=== PATIENT | female | born 1990 | race Caucasian/White ===

== ENCOUNTER 2018-11-30 15:24 | Emergency (ER) | payer BC, OTHER ==
[2018-11-30] MEDS ORDERED: NORCO 5/325 MG PO ONE (15:54)
[2018-11-30] MEDS ORDERED: NORCO 5/325 MG ONE (16:00)
[2018-11-30 16:37] VITALS: BP 122/60; PULSE 62
[2018-11-30 16:45] VITALS: O2SAT 98
--- NOTE | 2018-11-30 16:45 | ERPHSYRPT ---
- History of Present Illness Time Seen by Provider: 11/30/18 15:50 Source: patient Exam Limitations: clinical condition Patient Subjective Stated Complaint: Left ankle injury Triage Nursing Assessment: Patient brought back to ED via w/c and transferred to bed per self. Patient A+O X 3. Patient states she was coming out of her house and slipped on a run and landed on left ankle. Left ankle noted to be swollen and bruised. Patient complain of constant aching 2/10 when at rest and 5 /10 when moving. Pulse present. Physician History: PATIENT SLIPPED ONTO A RUG AND TWISTED HER LEFT ANKLE, COMPLAINS OF SEVERE PAIN AND SWELLING OVER OUTER ASPECT OF ANKLE. DENIES DEFORMITY OR BRUISING. Method of Injury: direct blow Occurred: just prior to arrival Quality: throbbing Severity of Pain-Max: moderate Severity of Pain-Current: moderate Lower Extremities Pain: ankle: left Modifying Factors: Improves With: movement Associated Symptoms: unable to bear weight Allergies/Adverse Reactions: No Known Drug Allergies Allergy (Unverified 11/30/18 15:38) Home Medications: Norgestimate-Ethinyl Estradiol [Tri-Sprintec] 1 tab PO DAILY 11/30/18 [History] Hx Influenza Vaccination/Date Given: Yes Hx Pneumococcal Vaccination/Date Given: No Immunizations Up to Date: Yes - Review of Systems Constitutional: No Symptoms Musculoskeletal: Injury, Joint Pain, Joint Swelling Endocrine: No Symptoms Immunological/Allergic: No Symptoms - Past Medical History Pertinent Past Medical History: No Neurological History: No Pertinent History ENT History: No Pertinent History Cardiac History: No Pertinent History Respiratory History: No Pertinent History Endocrine Medical History: No Pertinent History Musculoskeletal History: No Pertinent History GI Medical History: No Pertinent History History: No Pertinent History Psycho-Social History: No Pertinent History Female Reproductive Disorders: No Pertinent History - Past Surgical History Past Surgical History: Yes Neuro Surgical History: No Pertinent History Cardiac: No Pertinent History Respiratory: No Pertinent History Gastrointestinal: No Pertinent History Genitourinary: No Pertinent History Musculoskeletal: No Pertinent History Female Surgical History: No Pertinent History - Social History Smoking Status: Never smoker Exposure to second hand smoke: No Drug Use: none Patient Lives Alone: No - Female History Hx Last Menstrual Period: 3 weeks ago Hx Now: No - Nursing Vital Signs Nursing Vital Signs: Initial Vital Signs Temperature 98.0 F 11/30/18 15:40 Pulse Rate 62 11/30/18 15:40 Respiratory Rate 18 11/30/18 15:40 Blood Pressure 122/60 11/30/18 15:40 O2 Sat by Pulse Oximetry 96 11/30/18 15:40 Pain Scale Pain Intensity 5 - Physical Exam General Appearance: no apparent distress Ankle Exam: left ankle: limited range of motion, pain, soft tissue tenderness, swelling (MARKED SOFT TISSUE SWELLING LATERAL MALLEOLUS, NO JOINT LAXITY, CREPITUS OR ECCHYMOSIS, LEFT PEDIS PULSE 2+) DTR - Lower Extremities Exam: knee (R): 2+, knee (L): 2+, ankle (R): 2+, ankle ( L): 2+ SpO2 Interpretation: normal SpO2: 98 - Radiology Exams Left Ankle X-ray Interpretation: Interpreted by me (MARKED SOFT TISSUE SWELLING LATERAL MALLEOLUS, NO FRACTURE OR DISLOCATION) Ordered Tests: Active Orders 24 hr Category Date Time Status Crutches STAT Care 11/30/18 15:51 Active Splint STAT Care 11/30/18 15:51 Active ANKLE (3 VIEWS) Stat Exams 11/30/18 16:14 Taken Medication Summary Discontinued Medications Generic Name Dose Route Start Last Admin Trade Name Freq PRN Reason Stop Dose Admin Hydrocodone Bitart/Acetaminophen 1 tab 11/30/18 15:54 11/30/18 16:01 Hewitt 5/325 Mg PO 11/30/18 15:55 1 tab STAT ONE Administration Hydrocodone Bitart/Acetaminophen Confirm 11/30/18 16:00 [place] 5/325 Mg Administered 11/30/18 16:01 Dose 1 tab .ROUTE .STK-MED ONE - Progress Progress: pain not gone completely Progress Note: 11/30/18 16:40 NORCO 5/325 ORALLY, CRUTCHES, VELCRO ANKLE SPLINT Counseled pt/family regarding: diagnosis, need for follow-up, rad results - Departure Departure Disposition: Home Clinical Impression: LEFT ANKLE STRAIN Condition: Stable Critical Care Time: No Referrals: JANEL VALERIO MD [Primary Care Provider] - Additional Instructions: AMBULATE USING CRUTCHES NONWEIGHT BEARING LEFT FOOT FOR 5-7 DAYS, ELEVATE FOOT AND APPLY ICE OVER ANKLE SWELLING EVERY 4 HOURS,30 MINUTES FOR 48 HOURS. MOTRIN 600MG EVERY 6 HOURS FOR MILD TO MODERATE PAIN. NORCO 5/325 EVERY 6 HOURS FOR SEVERE PAIN. CONSULT YOUR PRIMARY CARE PROVIDER FOR FOLLOWUP IN 1 WEEK. Prescriptions: Hydrocodone/APAP 5-325 Tab^^^ [[place]itt 5-325 Tablet^^^] 1 tab PO Q6HPRN PRN #8 tablet MDD 4 PRN Reason: Pain Ibuprofen 600 mg PO Q6H PRN PRN #20 tablet PRN Reason: Pain
--- NOTE | 2018-11-30 22:02 | XRAY ---
Indication: Pain and swelling following injury. Comparison: None 3 views of the left ankle demonstrates anterior lateral soft tissue swelling. No other bony, articular, or soft tissue abnormalities.
== END 2018-11-30 17:43 | disposition home or self-care (01) ==
LOC: ED 15:24
DX: S96.912A Strain of unspecified muscle and tendon at ankle and foot level, left foot, initial encounter (principal); W01.198A Fall on same level from slipping, tripping and stumbling with subsequent striking against other object, initial encounter; X50.1XXA Overexertion from prolonged static or awkward postures, initial encounter; M25.572 Pain in left ankle and joints of left foot
CPT/HCPCS: 73610; 99284; A9270-GY

== ENCOUNTER 2024-09-14 20:01 | Emergency (ER) | payer BC, OTHER ==
[2024-09-14 20:30] VITALS: TEMP 97.7
--- NOTE | 2024-09-14 20:31 | ERPHSYRPT ---
- History of Present Illness Time Seen by Provider: 09/14/24 20:15 Source: patient, family, EMS Exam Limitations: no limitations Patient Subjective Stated Complaint: C/O syncope episode at [facility] just prior to coming into the ER. Patient states she remembers suddently not feeling well and wanting to go home then woke up on the floor. states that patient did not try to catch herself from falling. Patient fell from a seated position. Triage Nursing Assessment: Patient arrived by EMS. She is alert and oriented but slow to answer at times, states it's because she can't remember some things about the incident. Patient staring off during triage at times. Patient has to have help by staff to sit up and remove shirt then put on gown; too weak to hold herself upright long enough to complete the task on her own. Hematoma forming to left side of forehead. Front tooth slightly chipped. Physician History: This is a 34-year-old white female patient brought to the emergency department by the paramedics with the complaint/medical issue of syncopal episode while at the [facility] prior to arrival. Patient was in a sitting position and then suddenly just fell over onto the ground hitting her head on the left side. She presents with a left forehead hematoma and the tip of her left front tooth. She does recall not feeling well just before this occurred and wanted to go home. The next thing she recalls she was on the floor. On arrival to the [facility] by the paramedics, the patient was breathing on her own and slowly starting to come to. They did place an intravenous line and was infusing normal saline solution. This is never happened to her before. She is awake alert and oriented but does not feel quite herself. She has been feeling well all week. She currently denies nausea vomiting or diarrhea. There is been no new medications. She only had 1 drink and it was approximately 2 to 3 hours prior to the patient arrival to the emergency department. She felt very weak on arrival to the emergency department. She states she has been eating and drinking well all week long. Timing/Duration: today Severity: moderate Character of Deficits: none Deficits: no difficulties Baseline/Normal Cognition: alert oriented x 3 Current Cognition: alert oriented x 3 Baseline Gait: walks w/o assistance Associated Symptoms: loss of consciousness, weakness, No confusion, No nausea, No vomiting, No vision changes, No chest pain Allergies/Adverse Reactions: No Known Drug Allergies Allergy (Verified 09/14/24 20:11) Home Medications: Norgestimate-Ethinyl Estradiol [[place]na 0.25-0.035 mg Tablet] 1 tab PO DAILY 09/14/24 [History] Hx Influenza Vaccination/Date Given: Yes Hx Pneumococcal Vaccination/Date Given: No Immunizations Up to Date: Yes Travel Risk - International Travel Have you traveled outside of the country in past 3 weeks: No - Emerging Infectious Disease Are you exhibiting symptoms associated with any current EIDs: No - Review of Systems Constitutional: Weakness Eyes: No Symptoms Ears, Nose, & Throat: No Symptoms Respiratory: No Symptoms Cardiac: No Symptoms Abdominal/Gastrointestinal: No Symptoms Genitourinary Symptoms: No Symptoms Musculoskeletal: No Symptoms Skin: No Symptoms Neurological: No Symptoms Psychological: No Symptoms Endocrine: No Symptoms Hematologic/Lymphatic: No Symptoms Immunological/Allergic: No Symptoms All Other Systems: Reviewed and Negative - Past Medical History Pertinent Past Medical History: No Neurological History: No Pertinent History ENT History: No Pertinent History Cardiac History: No Pertinent History Respiratory History: No Pertinent History Endocrine Medical History: No Pertinent History Musculoskeletal History: No Pertinent History GI Medical History: No Pertinent History History: No Pertinent History Psycho-Social History: No Pertinent History Female Reproductive Disorders: No Pertinent History - Past Surgical History Past Surgical History: No Neuro Surgical History: No Pertinent History Cardiac: No Pertinent History Respiratory: No Pertinent History Gastrointestinal: No Pertinent History Genitourinary: No Pertinent History Musculoskeletal: No Pertinent History Female Surgical History: No Pertinent History - Female History Hx Last Menstrual Period: NOW Hx Now: No - Social History Smoking Status: Never smoker Exposure to second hand smoke: No Drug Use: none - Social Determinants of Health Will the patient participate in the screening: Yes Do you worry about a steady place to live?: No Do you have any problems with any of the following?: No known problems In the past 12 months,have you had to go without utilities?: No Transportation Issues: No Has anyone in your support network made you feel unsafe?: No Have you or anyone in your house had to go w/o enough food: No - Nursing Vital Signs Nursing Vital Signs: Initial Vital Signs Temperature 97.7 F 09/14/24 20:01 Pulse Rate 80 09/14/24 20:01 Respiratory Rate 18 09/14/24 20:01 Blood Pressure 105/58 09/14/24 20:01 O2 Sat by Pulse Oximetry 98 09/14/24 20:01 Pain Scale Pain Intensity 6 - [place] Coma Scale Best Eye Response ([place]): (4) open spontaneously Best Verbal Response ([place]): (5) oriented Best Motor Response ([place]): (6) obeys commands Daryl Total: 15 - Physical Exam General Appearance: no apparent distress, alert, anxiety Eye Exam: bilateral eye: normal inspection, PERRL, EOMI Ears, Nose, Throat Exam: normal ENT inspection, TMs normal, moist mucous membranes Neck Exam: normal inspection, non-tender, supple, full range of motion Respiratory: normal breath sounds, lungs clear, airway intact, No chest tenderness, No respiratory distress Cardiovascular: regular rate/rhythm, normal heart sounds, normal peripheral pulses Gastrointestinal: soft, normal bowel sounds, No tenderness Pelvic Exam: not done Rectal Exam: not done Back Exam: normal inspection, normal range of motion, No CVA tenderness, No vertebral tenderness Extremity Exam: normal inspection, normal range of motion, pelvis stable Mental Status: alert, oriented x 3, other (She feels off as though she is in a fog) unix analyst Exam: normal hearing, normal speech, PERRL, tongue midline Skin Exam: normal color, warm, dry, other (Left forehead hematoma.) SpO2 Interpretation: normal SpO2: 96 O2 Delivery: Room Air Ordered Tests: Active Orders 24 hr Category Date Time Status String Winding Machine Operator STAT Care 09/14/24 20:20 Active EKG-ER Only STAT Care 09/14/24 20:18 Active IV Insertion STAT Care 09/14/24 20:18 Active POCT Glucose Check STAT Care 09/14/24 20:18 Active Pulse Oximetry (ED) STAT Care 09/14/24 20:18 Active CERVICAL SPINE WO CONTRAST [CT] Stat Exams 09/14/24 20:19 Completed HEAD WITHOUT CONTRAST [CT] Stat Exams 09/14/24 20:19 Completed CBC W DIFF Stat Lab 09/14/24 20:45 Completed CMP Stat Lab 09/14/24 20:45 Completed CULTURE,URINE Stat Lab 09/14/24 21:43 Received ETHYL ALCOHOL Stat Lab 09/14/24 20:45 Completed HCG QUALITATIVE, SERUM Stat Lab 09/14/24 20:45 Completed MAGNESIUM Stat Lab 09/14/24 20:45 Completed TROPONIN Q4H Lab 09/14/24 20:45 Completed TROPONIN Q4H Lab 09/15/24 00:30 Ordered TROPONIN Q4H Lab 09/15/24 04:30 Ordered TSH [TSH, 3RD Generation] Stat Lab 09/14/24 20:45 Completed UA W/RFX UR CULTURE Stat Lab 09/14/24 21:43 Completed Urine Triage Profile Stat Lab 09/14/24 21:43 Completed Medication Summary Generic Name Dose Route Start Last Admin Trade Name Freq PRN Reason Stop Dose Admin Sodium Chloride 1,000 mls @ 100 mls/hr 09/14/24 20:30 09/14/24 20:42 Sodium Chloride 0.9% 1000 Ml IV 10/14/24 20:29 100 mls/hr .Q10H YANCI Administration Lab/Rad Data: Laboratory Result Diagrams 09/14/24 20:45 09/14/24 20:45 Laboratory Results 09/14/24 09/14/24 09/14/24 Range/Units 21:43 21:43 20:45 WBC (3.98-10.04) x10^3/uL RBC (3.93-5.22) x10^6/uL Hgb (11.2-15.7) g/dL Hct (34.1-44.9) % MCV (79.4-94.8) fL MCH (25.6-32.2) pg MCHC (32.2-35.5) g/dL RDW (11.7-14.4) % Plt Count (182-369) x10^3/uL MPV (9.4-12.3) fL Gran % (34.0-71.1) % Immature Gran % (Auto) (0.001-0.429) % Nucleat RBC Rel Count (0.00-0.2) % Eos # (Auto) (0.04-0.36) x10^3/uL Immature Gran # (Auto) (0.001-0.031) x10^3u/L Absolute Lymphs (auto) (1.18-3.74) x10^3/uL Absolute Monos (auto) (0.24-0.86) x10^3/uL Absolute Nucleated RBC (0.00-0.012) x10^3u/L Lymphocytes % (19.3-51.7) % Monocytes % (4.7-12.5) % Eosinophils % (0.7-5.8) % Basophils % (0.1-1.2) % Absolute Granulocytes (1.56-6.13) x10^3/uL Basophils # (0.01-0.08) x10^3/uL Sodium (135-145) mmol/L Potassium (3.5-5.1) mmol/L Chloride (98-107) mmol/L Carbon Dioxide (22-30) mmol/L Anion Gap (5-15) MEQ/L BUN (7-17) mg/dL Creatinine (0.52-1.04) mg/dL Estimated GFR ML/MIN Glucose (74-106) mg/dL Calcium (8.4-10.2) mg/dL Magnesium (1.6-2.3) mg/dL Total Bilirubin (0.2-1.3) mg/dL AST (14-36) U/L ALT (0-35) U/L Alkaline Phosphatase (38-126) U/L Troponin I (0.000-0.033) ng/mL Serum Total Protein (6.3-8.2) g/dL Albumin (3.5-5.0) g/dL Free T4 (0.78-2.19) ng/dL TSH 3rd Generation (0.470-4.680) mIU/L Serum HCG, Qual NEGATIVE (NEGATIVE) Urine Color Yellow (Yellow) Urine Appearance Cloudy A (Clear) Urine pH 7.5 (4.6-8.0) Ur Specific [place] 1.015 (1.005-1.030) Urine Protein 30 (Negative) Urine Glucose (UA) Negative (Negative) mg/dL Urine Ketones Trace A (Negative) Urine Blood Negative (Negative) Urine Nitrite Negative (Negative) Urine Bilirubin Negative (Negative) Urine Urobilinogen 0.2 (0.2) mg/dL Ur Leukocyte Esterase Negative (Negative) U Hyaline Cast (Auto) 3-5 A (0-2) /LPF Urine Microscopic RBC 3-5 (0-5) /HPF Urine Microscopic WBC 11-20 A (0-5) /HPF Ur Epithelial Cells None Seen (None Seen) /HPF Urine Bacteria Rare A (None Seen) /HPF Urine Culture Reflexed YES (NO) Urine Opiates Level NEGATIVE (NEGATIVE) Ur Methadone NEGATIVE (NEGATIVE) Urine Barbiturates NEGATIVE (NEGATIVE) Ur Phencyclidine (PCP) NEGATIVE (NEGATIVE) Urine Amphetamine NEGATIVE (NEGATIVE) U Benzodiazepine Level NEGATIVE (NEGATIVE) Urine Cocaine NEGATIVE (NEGATIVE) Urine Marijuana (THC) NEGATIVE (NEGATIVE) Ethyl Alcohol (0-10) mg/dL 09/14/24 09/14/24 09/14/24 Range/Units 20:45 20:45 20:45 WBC (3.98-10.04) x10^3/uL RBC (3.93-5.22) x10^6/uL Hgb (11.2-15.7) g/dL Hct (34.1-44.9) % MCV (79.4-94.8) fL MCH (25.6-32.2) pg MCHC (32.2-35.5) g/dL RDW (11.7-14.4) % Plt Count (182-369) x10^3/uL MPV (9.4-12.3) fL Gran % (34.0-71.1) % Immature Gran % (Auto) (0.001-0.429) % Nucleat RBC Rel Count (0.00-0.2) % Eos # (Auto) (0.04-0.36) x10^3/uL Immature Gran # (Auto) (0.001-0.031) x10^3u/L Absolute Lymphs (auto) (1.18-3.74) x10^3/uL Absolute Monos (auto) (0.24-0.86) x10^3/uL Absolute Nucleated RBC (0.00-0.012) x10^3u/L Lymphocytes % (19.3-51.7) % Monocytes % (4.7-12.5) % Eosinophils % (0.7-5.8) % Basophils % (0.1-1.2) % Absolute Granulocytes (1.56-6.13) x10^3/uL Basophils # (0.01-0.08) x10^3/uL Sodium (135-145) mmol/L Potassium (3.5-5.1) mmol/L Chloride (98-107) mmol/L Carbon Dioxide (22-30) mmol/L Anion Gap (5-15) MEQ/L BUN (7-17) mg/dL Creatinine (0.52-1.04) mg/dL Estimated GFR ML/MIN Glucose (74-106) mg/dL Calcium (8.4-10.2) mg/dL Magnesium (1.6-2.3) mg/dL Total Bilirubin (0.2-1.3) mg/dL AST (14-36) U/L ALT (0-35) U/L Alkaline Phosphatase (38-126) U/L Troponin I < 0.012 (0.000-0.033) ng/mL Serum Total Protein (6.3-8.2) g/dL Albumin (3.5-5.0) g/dL Free T4 1.06 (0.78-2.19) ng/dL TSH 3rd Generation 0.707 (0.470-4.680) mIU/L Serum HCG, Qual (NEGATIVE) Urine Color (Yellow) Urine Appearance (Clear) Urine pH (4.6-8.0) Ur Specific [place] (1.005-1.030) Urine Protein (Negative) Urine Glucose (UA) (Negative) mg/dL Urine Ketones (Negative) Urine Blood (Negative) Urine Nitrite (Negative) Urine Bilirubin (Negative) Urine Urobilinogen (0.2) mg/dL Ur Leukocyte Esterase (Negative) U Hyaline Cast (Auto) (0-2) /LPF Urine Microscopic RBC (0-5) /HPF Urine Microscopic WBC (0-5) /HPF Ur Epithelial Cells (None Seen) /HPF Urine Bacteria (None Seen) /HPF Urine Culture Reflexed (NO) Urine Opiates Level (NEGATIVE) Ur Methadone (NEGATIVE) Urine Barbiturates (NEGATIVE) Ur Phencyclidine (PCP) (NEGATIVE) Urine Amphetamine (NEGATIVE) U Benzodiazepine Level (NEGATIVE) Urine Cocaine (NEGATIVE) Urine Marijuana (THC) (NEGATIVE) Ethyl Alcohol (0-10) mg/dL 09/14/24 09/14/24 Range/Units 20:45 20:45 WBC 13.0 H (3.98-10.04) x10^3/uL RBC 4.02 (3.93-5.22) x10^6/uL Hgb 12.2 (11.2-15.7) g/dL Hct 37.1 (34.1-44.9) % MCV 92.3 (79.4-94.8) fL MCH 30.3 (25.6-32.2) pg MCHC 32.9 (32.2-35.5) g/dL RDW 13.2 (11.7-14.4) % Plt Count 291 (182-369) x10^3/uL MPV 10.0 (9.4-12.3) fL Gran % 75.7 H (34.0-71.1) % Immature Gran % (Auto) 0.2 (0.001-0.429) % Nucleat RBC Rel Count 0.0 (0.00-0.2) % Eos # (Auto) 0.29 (0.04-0.36) x10^3/uL Immature Gran # (Auto) 0.03 (0.001-0.031) x10^3u/L Absolute Lymphs (auto) 1.77 (1.18-3.74) x10^3/uL Absolute Monos (auto) 1.00 H (0.24-0.86) x10^3/uL Absolute Nucleated RBC 0.00 (0.00-0.012) x10^3u/L Lymphocytes % 13.7 L (19.3-51.7) % Monocytes % 7.7 (4.7-12.5) % Eosinophils % 2.2 (0.7-5.8) % Basophils % 0.5 (0.1-1.2) % Absolute Granulocytes 9.81 H (1.56-6.13) x10^3/uL Basophils # 0.06 (0.01-0.08) x10^3/uL Sodium 141 (135-145) mmol/L Potassium 3.7 (3.5-5.1) mmol/L Chloride 106 (98-107) mmol/L Carbon Dioxide 26 (22-30) mmol/L Anion Gap 13.3 (5-15) MEQ/L BUN 10 (7-17) mg/dL Creatinine 0.70 (0.52-1.04) mg/dL Estimated GFR 114.9 ML/MIN Glucose 98 (74-106) mg/dL Calcium 9.1 (8.4-10.2) mg/dL Magnesium 2.0 (1.6-2.3) mg/dL Total Bilirubin 0.40 (0.2-1.3) mg/dL AST 26 (14-36) U/L ALT 18 (0-35) U/L Alkaline Phosphatase 52 (38-126) U/L Troponin I (0.000-0.033) ng/mL Serum Total Protein 6.3 (6.3-8.2) g/dL Albumin 3.7 (3.5-5.0) g/dL Free T4 (0.78-2.19) ng/dL TSH 3rd Generation (0.470-4.680) mIU/L Serum HCG, Qual (NEGATIVE) Urine Color (Yellow) Urine Appearance (Clear) Urine pH (4.6-8.0) Ur Specific [place] (1.005-1.030) Urine Protein (Negative) Urine Glucose (UA) (Negative) mg/dL Urine Ketones (Negative) Urine Blood (Negative) Urine Nitrite (Negative) Urine Bilirubin (Negative) Urine Urobilinogen (0.2) mg/dL Ur Leukocyte Esterase (Negative) U Hyaline Cast (Auto) (0-2) /LPF Urine Microscopic RBC (0-5) /HPF Urine Microscopic WBC (0-5) /HPF Ur Epithelial Cells (None Seen) /HPF Urine Bacteria (None Seen) /HPF Urine Culture Reflexed (NO) Urine Opiates Level (NEGATIVE) Ur Methadone (NEGATIVE) Urine Barbiturates (NEGATIVE) Ur Phencyclidine (PCP) (NEGATIVE) Urine Amphetamine (NEGATIVE) U Benzodiazepine Level (NEGATIVE) Urine Cocaine (NEGATIVE) Urine Marijuana (THC) (NEGATIVE) Ethyl Alcohol 26 H (0-10) mg/dL - Progress Progress: improved, re-examined Progress Note: 09/14/24 20:32 My medical decision making and the assignment of moderate complexity of this patient's medical issue today is based on review of the patient's past medical history, review the patient's medication list, review the patient drug allergy list, history present illness and physical findings on examination. The workup in this patient includes placement of a intravenous line, infusion of normal saline solution, CBC, CMP, test, urinalysis, urine drug screen, ethyl alcohol level, twelve-lead EKG, troponin level, magnesium level, free T4, TSH, CT scan of the cervical spine and head, both without contrast. Differential diagnosis includes but is not limited to acute intracranial abnormality, thyroid abnormality, electrolyte abnormality, arrhythmia, myocardial infarction, , dehydration, urinary tract infection 09/14/24 23:03 I interpreted the patient's laboratory data results. Based on the laboratory data results, the patient does have a leukocytosis, evidence for mild dehydration and urinary tract infection 09/14/24 23:[address] scan of the head without contrast was interpreted by the radiologist and I reviewed the impression. The impression states no evidence of acute intraparenchymal/intraventricular hemorrhage or calvarial bone fracture. There is a small left frontal area swelling. CT scan of the cervical spine without contrast was interpreted by the radiologist and shows straightening of cervical spine possibly positional versus muscle spasm. There are no acute fractures, dislocations or significant degenerative changes. Counseled pt/family regarding: lab results, diagnosis, need for follow-up, rad results Medical Desision Making - Independent Historian Additional History obtained from: Spouse, Family - Diagnostic Testing Diagnostic test were ordered, analyzed, and reviewed by me: Yes Radiological Interpretation: Reviewed by me, Teleradiologist Report - Risk of complications The pt has a mod risk of morbidity or mortality based on: Need for prescription drug management - Departure Departure Disposition: Home Clinical Impression: Leukocytosis, Urinary tract infection, Dehydration Condition: Stable Critical Care Time: No Referrals: BRODY ADLER DO [Primary Care Provider, [facility]] - Follow up/PCP as directed Additional Instructions: Drink plenty of clear liquids before advancing your diet. Take your medications as prescribed. Call your primary care provider on 09/16/2024, to make arrangements for follow-up appointment for further evaluation and management. Prescriptions: Smz/Tmp Ds Tablet [Bactrim Ds Tablet] 1 udtab PO BID #14 tablet
[2024-09-14] MEDS ORDERED: Sodium Chloride 0.9% 1000 ML 1,000 ML ONE (20:40)
[2024-09-14] MEDS: Sodium Chloride 0.9% 1000 ML 1,000 ML IV SCH (20:42)
[2024-09-14 20:49] LABS: Absolute Neutrophil Ct (ANC) 9.81 x10^3/uL (1.56-6.13); BASOPHIL % 0.5 % (0.1-1.2); Basophil (Absolute #) 0.06 x10^3/uL (0.01-0.08); Eosinophil % 2.2 % (0.7-5.8); Eosinophil (Absolute #) 0.29 x10^3/uL (0.04-0.36); Hematocrit 37.1 % (34.1-44.9); Hemoglobin 12.2 g/dL (11.2-15.7); IMMATURE GRAN # 0.03 x10^3u/L (0.001-0.031); IMMATURE GRAN % 0.2 % (0.001-0.429); Lymphocyte (Absolute #) 1.77 x10^3/uL (1.18-3.74); Lymphocytes % 13.7 % (19.3-51.7); Mean Cell Volume 92.3 fL (79.4-94.8); Mean Corpuscular Hemoglobin 30.3 pg (25.6-32.2); Mean Corpuscular Hgb Concent. 32.9 g/dL (32.2-35.5); Monocytes % 7.7 % (4.7-12.5); Neutrophil % 75.7 % (34.0-71.1); Platelet Count 291 x10^3/uL (182-369); Red Blood Count 4.02 x10^6/uL (3.93-5.22); Red Cell Distribution Width 13.2 % (11.7-14.4)
[2024-09-14 21:05] LABS: HCG SERUM TEST NEGATIVE (NEGATIVE)
[2024-09-14 21:07] LABS: ALBUMIN 3.7 g/dL (3.5-5.0); ANION GAP 13.3 MEQ/L (5-15); BILIRUBIN,TOTAL 0.4 mg/dL (0.2-1.3); Calcium 9.1 mg/dL (8.4-10.2); Creatinine 1 0.7 mg/dL (0.52-1.04); EST GLOMERULAR FILTRATION RATE 114.9 ML/MIN; Potassium 3.7 mmol/L (3.5-5.1); Total Protein 6.3 g/dL (6.3-8.2)
--- NOTE | 2024-09-14 22:17 | XRAY ---
CLINICAL HISTORY: Syncopal episode COMPARISON: None. TECHNIQUE: Axial non-contrast CT scan of the brain was performed from the skull base to the high parietal region. One of the following dose reduction techniques was utilized for this exam: Automated exposure control, adjustment of the mA and/or kV according to patient size, use of iterative reconstruction. FINDINGS: Brain Parenchyma: Normal attenuation of the cerebral hemispheres, cerebellum, and brainstem. No evidence of acute infarct, hemorrhage, or mass effect. No abnormal areas of hypo- or hyperattenuation. Ventricular System: Ventricles are normal in size and configuration. No evidence of hydrocephalus or ventricular enlargement. Subarachnoid Spaces: Normal sulci and cisterns. No evidence of subarachnoid hemorrhage or extra-axial fluid collections. Cerebellum and Brainstem: Normal size and signal. No masses, lesions, or areas of abnormal density. Orbits: Normal appearance of the globes, optic nerves, and extraocular muscles. No evidence of orbital masses or abnormal density. Sinuses: Clear paranasal sinuses. No evidence of sinusitis or mucosal thickening. Mastoid Air Cells: Clear mastoid air cells. No evidence of mastoiditis. Skull: Small left frontal subgaleal hematoma/swelling measuring 30 x 7 mm. IMPRESSION: 1. No evidence of acute intraparenchymal/intraventricular haemorrhage or calvarial bone fracture. 2. Small extracalvarial left frontal subglial acute hematoma/swelling Electronically Signed by: Vickey Wiggins MD. (09/14/2024 22:14:04 EDT)
[2024-09-14 22:19] LABS: Appearance Cloudy (Clear); Bacteria Rare /HPF (None Seen); Bilirubin Negative (Negative); Blood Negative (Negative); Epithelial Cells None Seen /HPF (None Seen); Glucose, Urine Negative (Negative); Ketones Trace (Negative); Leukocyte Esterase Negative (Negative); Nitrite Negative (Negative); Ph 7.5 (4.6-8.0); Protein,Urine Dip 30 (Negative); Specific Gravity 1.015 (1.005-1.030); Urobilinogen 0.2 mg/dL (0.2)
[2024-09-14 22:21] LABS: Amphetamine,Urine NEGATIVE (NEGATIVE); Barbiturate,Urine NEGATIVE (NEGATIVE); Benzodiazepine,Urine NEGATIVE (NEGATIVE); Cocaine,Urine NEGATIVE (NEGATIVE); Methadone,Urine NEGATIVE (NEGATIVE); Opiate,Urine NEGATIVE (NEGATIVE); PCP,Urine NEGATIVE (NEGATIVE); THC,Urine NEGATIVE (NEGATIVE)
--- NOTE | 2024-09-14 22:53 | XRAY ---
CLINICAL HISTORY: Syncopal episode COMPARISON: No previous studies are available for comparison. TECHNIQUE: CT scan of the cervical spine was performed without the administration of intravenous contrast. Contiguous axial images were obtained from the skull base to the upper thoracic spine. Coronal and sagittal reformatted images were also reviewed. One of the following dose reduction techniques was utilized for this exam. Automated exposure control, adjustment of the mA and/or kV according to patient size, and use of iterative reconstruction. DLP: 1533.23 mGy-cm, CTDI: 74.93 mGy. FINDINGS: Vertebrae: Straightening of cervical spine noted possibly positional vs. muscle spasm. The vertebral bodies are normal in height and alignment. No evidence of acute fracture or dislocation. The cortical and trabecular bone patterns are normal. No signs of lytic or sclerotic lesions. Normal configuration of the posterior elements. Intervertebral Discs: The intervertebral disc spaces are preserved. No evidence of significant disc bulging or herniation. No calcifications or ossifications noted within the discs. Facet Joints: The facet joints are normal without evidence of dislocation, subluxation, or significant degenerative changes. Neural Foramina: The neural foramina are patent bilaterally at all levels. No evidence of foraminal narrowing or nerve root compression. Prevertebral Soft Tissues: The prevertebral soft tissues are normal in thickness without evidence of mass or abnormal fluid collection. Additional Findings: No other significant findings are noted in the visualized soft tissue structures or bony elements. IMPRESSION: 1. Straightening of cervical spine noted possibly positional vs. muscle spasm. 2. No evidence of acute fracture, dislocation, or significant degenerative changes. Electronically Signed by: Vickey Wiggins MD. (09/14/2024 22:48:35 EDT)
[2024-09-14] MEDS ORDERED: BACTRIM DS TABLET PO ONE (23:11)
[2024-09-14] MEDS: BACTRIM DS TABLET PO ONE (23:12)
[2024-09-14] MEDS ORDERED: ANTIVERT 25 MG ONE (23:49)
[2024-09-14] MEDS: ANTIVERT 25 MG PO ONE (23:50)
[2024-09-15 00:11] VITALS: RESP 13
[2024-09-15] MEDS: ZOFRAN ODT 4 MG PO ONE (00:43)
[2024-09-15] MEDS ORDERED: ZOFRAN ODT 4 MG ONE (00:43)
[2024-09-15 01:07] VITALS: BP 115/61; PULSE 90; O2SAT 97
== END 2024-09-15 00:59 | disposition home or self-care (01) ==
LOC: ED 20:01
DX: N39.0 Urinary tract infection, site not specified (principal); D72.829 Elevated white blood cell count, unspecified; E86.0 Dehydration; R11.2 Nausea with vomiting, unspecified; R55 Syncope and collapse; Z79.899 Other long term (current) drug therapy
CPT/HCPCS: 36415; 70450; 72125; 80053; 80307; 81001; 82077; 83735; 84439; 84443; 84484; 84703; 85025; 87086; 93005; 93041; 94760; 96360; 96361; 99285; Q0162; A9270-GY